=== PATIENT | female | born 1965 | race Caucasian/White ===

== ENCOUNTER 2020-11-11 16:02 | Outpatient (REF) | payer MEDICAID, SELFPAY | END 2020-11-11 16:03 | disposition home or self-care (01) | LOC: HO.LAB 16:02 | PROVIDERS: Visit Provider Internal Medicine | DX: Z20.828 Contact with and (suspected) exposure to other viral communicable diseases (principal) | CPT/HCPCS: C9803; U0003 ==

== ENCOUNTER 2022-02-12 12:15 | Emergency (ER) | payer MEDICAID, SELFPAY ==
[2022-02-12 12:19] VITALS: BP 136/78; PULSE 71; RESP 16; TEMP 36.4; O2SAT 94; BMI 21.4
--- NOTE | 2022-02-12 12:47 | ED.ANIMALBIT ---
HPI - Animal Bite General Chief Complaint: Animal Bite Stated Complaint: Animal Bit Time Seen by Provider: 02/12/22 12:47 Source: patient Mode of arrival: ambulatory Limitations: no limitations History of Present Illness HPI narrative: Patient is a 56 year old female presenting to the emergency department today with cat bites to her right hand. Patient states that her 2 indoor cats were fighting and one attacked her right hand. Patient states that her cats are up to date with rabies vaccinations. Patient states that she does not know when her last tetanus shot was. Patient denies any dizziness, lightheadedness, abdominal pain, nausea, vomiting, fever, chills, blurry vision, double vision, loss of vision, chest pain, difficulty breathing, shortness of breath, back pain, night sweats, pain with urination, increased urinary frequency, increased urinary urgency, blood in her urine or stool, syncope or a near syncopal episode, bowel incontinence, bladder incontinence, bowel retention, bladder retention, or any other complaints at this time. MD complaint: animal bite Onset (ago): minute(s) Animal: cat Description of animal: household pet Mechanism: bite Location: other (right hand) Pain description: dull Severity scale (1-10): 3 Context: animals fighting Associated symptoms: none Treatments prior to arrival: wound dressing(s) Related Data Patient tetanus UTD: No Previous Rx's Medication Instructions Recorded amoxicillin 875 mg-potassium 1 tab PO BID 7 Days #14 tab 02/12/22 clavulanate 125 mg tablet Allergies Allergy/AdvReac Type Severity Reaction Status Date / Time No Known Allergies Allergy Unverified 08/12/20 15:31 [No Known Allergies*] Review of Systems Constitutional: Constitutional: Reports no additional constitutional complaints, Denies chills, Denies fever(s) and Denies night sweats Eyes: Eyes: Reports no additional eye complaints, Denies blurry vision, Denies change in vision, Denies diplopia, Denies eye discharge, Denies loss of vision and Denies eye pain ENT: Denies dizziness Cardiovascular: Cardiovascular: Reports no additional cardiovascular complaints, Denies chest pain, Denies lightheadedness, Denies Loss of Consciousness and Denies dyspnea Respiratory: Respiratory: Reports no additional respiratory complaints and Denies dyspnea Gastrointestinal: Gastrointestinal: Reports no additional gastrointestinal complaints, Denies abdominal pain, Denies melena, Denies hematochezia, Denies change in bowel habits and Denies change in stool character Genitourinary: Genitourinary: Denies hematuria, Denies urinary frequency, Denies dysuria, Denies urinary incontinence, Denies urinary hesitancy and Denies urinary urgency Musculoskeletal: Musculoskeletal: Reports no additional musculoskeletal complaints, Denies numbness and Denies tingling Integumentary/Breasts: Comments: cat bites to the right hand Neurologic: Denies dizziness, Denies loss of vision, Denies numbness and Denies tingling Psychiatric: Psychiatric: Reports no additional psychiatric complaints Endocrine: Endocrine: Reports no additional endocrine complaints Hematologic/Lymphatic: Hematologic/Lymphatic: Reports no additional hematologic/lymphatic complaints Allergic/Immunologic: Allergic/Immunologic: Reports no additional allergic/immunologic complaints [facility] Past Medical History Attestation statement: The following information was validated with the patient. Source: old records reviewed Social History Social History Advance Directives: Yes Advance Directives Information Provided: No Advance Directives on File: No Physical Exam ED Vital Signs: Vital Signs - 24 hr 02/12/22 12:19 Temperature 97.6 F Pulse Rate 71 Respiratory Rate 16 Blood Pressure 136/78 Pulse Oximetry 94 BMI result Body Mass Index 21.4 Const General: cooperative, no acute distress, alert and awake Nutritional Appearance: well nourished Orientation/consciousness: patient oriented x3 Limitations: no limitations HENMT Head: Yes normal to inspection and Yes atraumatic Ears: hearing grossly normal bilaterally and external ears normal General nose exam: Normal external nose present, no nasal discharge noted and no epistaxis Face and sinus: Yes normal facial exam, No abrasion and No laceration Mouth: Normal oral and palatal mucosa present, no drooling and no muffled voice Eyes General: appearance normal, both eyes and all related structures Periorbital: periorbital findings normal Eyelids: Yes eyelids normal Conjunctivae: conjunctivae normal Pupils: Equal, round and reactive pupils present EOM: EOMs intact bilaterally Neck Neck: Yes normal visual inspection, Yes full ROM and Yes no lymphadenopathy Chest Chest palpation & inspection: normal inspection of the chest Resp Effort & Inspection: normal respiratory effort and able to speak in complete sentences Auscultation: clear to auscultation bilaterally Cardio Rate: regular rate Rhythm: regular rhythm GI Inspection: Yes normal to inspection Skin Other: small puncture wounds to the dorsal aspect of the right hand, no active bleeding or gaping areas Neuro General: patient oriented x3 and moves all extremities Cranial nerves: Yes Equal, round and reactive pupils present Cognition (Neuro): normal cognition Motor exam (neuro): 5/5 motor strength present throughout Sensory Exam: Normal double simultaneous stimulation for sensation Coordination: [id number] test normal Extrem General: Yes normal to inspection, Yes full ROM and Yes capillary refill normal Psych Appearance: grossly normal Mental Status: mental status grossly normal Affect: normal affect Attitude: cooperative Thought process: Normal thought process present Thought content: Normal thought content present Insight: Good insight present (Psych) MDM - Animal Bite MDM Narrative Medical decision making narrative: Patient is a 56 year old female presenting to the emergency department today with cat bites to her right hand. Patient's physical exam showed 3 cat bite puncture wounds with no active bleeding or gaping areas. I explained my physical exam findings to the patient. I answered all questions asked by the patient. Patient was brought up to date on their tetanus. I stressed the importance of the patient taking her medication as prescribed. I stressed the importance of the patient following up with her primary care provider. I stressed the importance of the patient returning to the emergency department immediately if her symptoms were to worsen or if she were to develop any dizziness, shortness of breath, difficulty breathing, chest pain, blurry vision, loss of vision, nausea, vomiting, abdominal pain, fever, chills, back pain, or any other complaints. Patient verbalized agreement and understanding with this treatment plan and discharge. Differential Diagnosis Differential diagnosis: Likely bite by animal and cat bite Medical Records Attestation: I reviewed the patient's medical records. Discharge Plan Discharge Clinical Impression: Bite by animal, Cat bite Patient Disposition: Home, Self-Care Instructions: Animal Bite (ED) Additional Instructions: Follow up with your primary care provider. Return to the emergency department immediately if your symptoms worsen or if you develop any dizziness, shortness of breath, difficulty breathing, chest pain, blurry vision, loss of vision, nausea, vomiting, abdominal pain, fever, chills, back pain, or any other complaints. Prescriptions: New amoxicillin-pot clavulanate 875-125 mg tablet 1 tab PO BID 7 Days Qty: 14 0RF Referrals: Feng Odell MD [Primary Care Provider] - 2 days Print Language: Welsh
[2022-02-12] MEDS: Diphth,Pertus(ACell),Tet Adult 0.5 ML SYRINGE IM (13:07)
== END 2022-02-12 13:14 | disposition home or self-care (01) ==
LOC: HO.ED 12:58
PROVIDERS: Emergency Provider Emergency Medicine Emergency Medical Services; PCP Internal Medicine
DX: S60.571A Other superficial bite of hand of right hand, initial encounter (principal); W55.01XA Bitten by cat, initial encounter; Y93.9 Activity, unspecified; Y92.9 Unspecified place or not applicable; Y99.9 Unspecified external cause status
CPT/HCPCS: 90471; 90715; 99283; 99284

== ENCOUNTER 2023-11-07 07:30 | Inpatient (IN) | payer MEDICAID, SELFPAY ==
[2023-11-07] VITALS (13 sets, daily range): BP systolic 119–150; BP diastolic 78–97; PULSE 16–130; RESP 16–40; TEMP 36.3–36.7; O2SAT 88–96; BMI 20.6; BMI 20.1
--- NOTE | 2023-11-07 | ECG_ITS ---
Test Reason : prolonged qt Blood Pressure : / mmHG Vent. Rate : 090 BPM Atrial Rate : 090 BPM P-R Int : 118 ms QRS Dur : 092 ms QT Int : 380 ms P-R-T Axes : 075 050 -41 degrees QTc Int : 464 ms Normal sinus rhythm Nonspecific T wave abnormality Abnormal ECG When compared with ECG of 07-NOV-2023 08:12, Nonspecific T wave abnormality has replaced inverted T waves in Inferior leads Referred By: Swati Mayers Electronically Signed By:Ed Casas
--- NOTE | ~2023-11-07 | XR_ITS ---
EXAMINATION: XR CHEST CLINICAL INFORMATION: Shortness of breath cough COMPARISON: Chest radiograph from 07/13/2018 TECHNIQUE: Frontal view of the chest was obtained. FINDINGS: Chronic appearing interstitial and reticular markings involving the bilateral lower lung samano though underlying infectious/inflammatory etiology not excluded. Trachea is midline. Cardiomediastinal silhouette is not enlarged. No large pleural effusion. Osseous structures are intact. Soft tissues are unremarkable. XR/XR chest 1V IMPRESSION: Chronic appearing interstitial and reticular markings involving the bilateral lower lung samano though underlying infectious/inflammatory etiology not excluded.
--- NOTE | 2023-11-07 07:48 | ECG_ITS ---
Test Reason : SOB Blood Pressure : / mmHG Vent. Rate : 112 BPM Atrial Rate : 112 BPM P-R Int : 112 ms QRS Dur : 084 ms QT Int : 470 ms P-R-T Axes : 074 051 048 degrees QTc Int : 641 ms Sinus tachycardia Nonspecific ST and T wave abnormality Prolonged QT Abnormal ECG When compared to the previous EKG of QT has lengthened Nonspecific ST-T changes Referred By: Generic ED Physician Electronically Signed By:Ed Casas
--- NOTE | 2023-11-07 08:29 | ED.SOB ---
HPI - SOB/Dyspnea General Chief Complaint: Upper Respiratory Symptoms Stated Complaint: SOB FOR DAYS PER EMS Time Seen by Provider: 11/07/23 07:53 Source: patient Mode of arrival: EMS History of Present Illness HPI Narrative: 58-year-old female with history of being an everyday smoker, COPD and presents with increasing shortness of breath for the past 5 days without associated fever chills, she denies any nausea or vomiting but has had increased cough. Related Data Previous Rx's Medication Instructions Recorded amoxicillin 875 mg-potassium 1 tab PO BID 7 days #14 tabs 02/12/22 clavulanate 125 mg tablet Allergies Allergy/AdvReac Type Severity Reaction Status Date / Time No Known Allergies Allergy Verified 11/07/23 08:16 [No Known Allergies*] Review of Systems Review of Systems: Pertinent positives and negatives as stated in HPI [facility] Past Medical History Source: nursing notes reviewed Social History Social History Smoked in Last 30 Days: Yes Use of substances other than those prescribed or required for medical reasons: No Advance Directives: No Advance Directives Information Provided: Yes Patient : No Physical Exam Vital Signs: Vital Signs: Last Vital Signs Temp 97.8 F 11/07/23 09:59 Pulse 121 H 11/07/23 10:03 Resp 22 H 11/07/23 10:03 BP 119/82 11/07/23 09:59 Pulse Ox 88 L 11/07/23 10:03 O2 Del Method Room Air 11/07/23 10:03 Oxygen Flow Rate 2 11/07/23 09:55 BMI result Body Mass Index 20.6 VITAL SIGNS: Reviewed. GENERAL: Well developed, well nourished, in no acute distress. HEAD: Normocephalic/atraumatic EYES: PERRLA, EOMI EARS: Ext canals without abnormality, TMs non-bulging and non-erythematous NOSE: Nares patent bilateral OROPHARYNX: no oral lesions noted, posterior pharynx clear and non-erythematous without noted tonsillar enlargement/erythema/exudates NECK: Supple, no adenopathy LUNGS: Productive cough, tachypnea, some expiratory wheeze noted. SpO2<95> on 2 L nasal cannula CARDIOVASCULAR: Regular rate and rhythm without noted murmurs ABDOMEN: Soft, non-tender, non-distended with bowel sounds. No rigidity. No guarding. No palpable masses or hernias noted MUSCULOSKELETAL: No tenderness, deformities, or effusions noted on gross inspection. EXTREMITIES: No cyanosis, clubbing or edema. SKIN: Inspection of the skin reveals no rashes NEUROLOGIC: Alert and oriented x 4. Strength and sensation to light touch were grossly intact x 4. Medications Administered Discontinued Medications Generic Name Dose Route Start Last Admin Trade Name Umerq PRN Reason Stop Dose Admin Acetaminophen 975 mg 11/07/23 08:30 11/07/23 09:48 Acetaminophen 325 Mg Tablet PO 11/07/23 08:31 Not Given ONCE ONE Albuterol Sulfate 5 mg/ 7.5 mg 11/07/23 09:11 11/07/23 09:17 Albuterol Sulfate 2.5 mg INHALE 11/07/23 09:12 7.5 mg ONCE ONE Administration Benzonatate 200 mg 11/07/23 08:06 11/07/23 09:47 Benzonatate 100 Mg Capsule PO 11/07/23 08:07 200 mg ONCE ONE Administration Ibuprofen 400 mg 11/07/23 08:30 11/07/23 09:48 Ibuprofen 400 Mg Tablet PO 11/07/23 08:31 Not Given ONCE ONE Methylprednisolone Sodium Succinate 125 mg 11/07/23 08:12 11/07/23 09:48 Methylprednisolone Sod Succ 125 Mg/2 Ml Vial IVPUSH 11/07/23 08:13 125 mg ONCE ONE Administration Medical Decision Making Medical Decision Making [facility] Narrative: 0815: 58-year-old female with history and clinical presentation, DDX: Chronic lung disease, pneumonia, viral illness: COVID/influenza/RSV. Tachycardia secondary to medication administration (albuterol/DuoNeb). 0904: The laboratory called to report lactic acid of 2.5 that is attributable to patient's nebulized treatments. I reviewed all investigations and hematologic indices do not demonstrated leukocytosis or left shift, there is an elevated hemoglobin level that suspect is related to patient's underlying COPD history, platelets are noted to be mildly lowered at 154. VBG does not demonstrate respiratory acidosis at this time and there is no hypercapnia noted likely secondary to significant tachypnea. Chemistry indices demonstrate mild metabolic acidosis and no evidence to suggest MARCIN or electrolyte derangement. Lactic acid elevated and addressed above, viral testing significant for influenza but patient is outside of window for initiation of Tamiflu. Chest x-ray demonstrates bronchial wall thickening and although this may be simply associated with viral infection and COPD will treat with a dose of antibiotics. Patient has received nebulized treatments as well as steroids. My interpretation is that patient has new oxygen requirements secondary to acute COPD exacerbation secondary to viral infection with suspected secondary bacterial infection. Due to QT/QTC prolongation patient will receive 2 g of magnesium sulfate. 1005: I discussed case with inpatient hospitalist who accepts admission. Differential Diagnosis Differential Diagnoses: The differential diagnosis associated with the presentation includes Please see the discussion above Admission/Observation Consideration of admission/observation: Escalation of care including admission/observation considered Please see the discussion above Consult Healthcare Provider Management of the patient was discussed with: Hospitalist Please see the discussion above Lab Data MDM Lab Attestation statement: I reviewed the patient's lab results. Please see the discussion above 11/07/23 08:32 11/07/23 08:32 Labs: Lab Results 11/07/23 11/07/23 11/07/23 Range/Units 08:32 08:33 08:35 WBC 6.6 (4.8-10.8) X10*3/uL RBC 5.96 H (4.20-5.50) X10*6/uL Hgb 18.0 H (12.0-16.0) g/dl Hct 52.6 H (37.0-47.0) % MCV 88.3 (80.0-98.0) fL MCH 30.2 (27.0-33.0) pg MCHC 34.2 (31.0-35.0) g/dl RDW 14.2 (11.0-16.0) % Plt Count 154 L (160-400) X10*3/uL MPV 11.9 (9.4-12.3) fL Immature Gran % (Auto) 0.5 H (0.0-0.4) % Neut % (Auto) 72.9 (45-73) % Lymph % (Auto) 17.6 L (20-40) % Hendricks % (Auto) 8.7 (2-11) % Eos % (Auto) 0.0 (0-4) % Baso % (Auto) 0.3 (0-2) % Lymph # (Auto) 1.2 (1.2-4.9) X10*3/uL Hendricks # (Auto) 0.6 (0.1-1.2) X10*3/uL Eos # (Auto) 0.0 (0.0-0.4) X10*3/uL Baso # (Auto) 0.0 (0.0-0.2) X10*3/uL Abs Immat Gran (auto) 0.03 (0.00-0.03) X10*3/uL Absolute Neuts (auto) 4.8 (2.0-8.3) x10*3/uL Absolute Nucleated RBC 0.000 (0.0-0.012) X10*3/uL Nucleated RBC % (auto) 0.0 (0.0-0.2) /100WBC VBG pH (7.32-7.43) VBG pCO2 mmHg VBG pO2 mmHg VBG HCO3 (22-26) mmol/L VBG O2 Saturation % VBG Base Excess mmol/L Sodium 137 (135-145) mmol/L Potassium 4.0 (3.3-5.1) mmol/L Chloride 104 (96-108) mmol/L Carbon Dioxide 19 L (22-29) mmol/L Anion Gap 18 (12-20) BUN 27 H (9-16) mg/dL Creatinine 1.06 (0.5-1.4) mg/dL Estim Creat Clear Calc 50.2 Estimated GFR 53 Random Glucose 150 H (60-115) mg/dL Lactic Acid 2.5 H* (0.5-2.0) mmol/L Calcium 9.8 (8.4-10.2) mg/dL Influenza Type A (PCR) POSITIVE A (Negative) Influenza Type B (PCR) NEGATIVE (Negative) RSV RNA Qual (PCR) NEGATIVE (Negative) SARS-CoV-2 RNA (RT-PCR) NEGATIVE (Negative) 11/07/23 Range/Units 09:02 WBC (4.8-10.8) X10*3/uL RBC (4.20-5.50) X10*6/uL Hgb (12.0-16.0) g/dl Hct (37.0-47.0) % MCV (80.0-98.0) fL MCH (27.0-33.0) pg MCHC (31.0-35.0) g/dl RDW (11.0-16.0) % Plt Count (160-400) X10*3/uL MPV (9.4-12.3) fL Immature Gran % (Auto) (0.0-0.4) % Neut % (Auto) (45-73) % Lymph % (Auto) (20-40) % Hendricks % (Auto) (2-11) % Eos % (Auto) (0-4) % Baso % (Auto) (0-2) % Lymph # (Auto) (1.2-4.9) X10*3/uL Hendricks # (Auto) (0.1-1.2) X10*3/uL Eos # (Auto) (0.0-0.4) X10*3/uL Baso # (Auto) (0.0-0.2) X10*3/uL Abs Immat Gran (auto) (0.00-0.03) X10*3/uL Absolute Neuts (auto) (2.0-8.3) x10*3/uL Absolute Nucleated RBC (0.0-0.012) X10*3/uL Nucleated RBC % (auto) (0.0-0.2) /100WBC VBG pH 7.35 (7.32-7.43) VBG pCO2 31 mmHg VBG pO2 77 mmHg VBG HCO3 17 L (22-26) mmol/L VBG O2 Saturation 94.0 % VBG Base Excess -6.3 mmol/L Sodium (135-145) mmol/L Potassium (3.3-5.1) mmol/L Chloride (96-108) mmol/L Carbon Dioxide (22-29) mmol/L Anion Gap (12-20) BUN (9-16) mg/dL Creatinine (0.5-1.4) mg/dL Estim Creat Clear Calc Estimated GFR Random Glucose (60-115) mg/dL Lactic Acid (0.5-2.0) mmol/L Calcium (8.4-10.2) mg/dL Influenza Type A (PCR) (Negative) Influenza Type B (PCR) (Negative) RSV RNA Qual (PCR) (Negative) SARS-CoV-2 RNA (RT-PCR) (Negative) Independent Interpretation I performed an independent interpretation of an: EKG Interpretation: Sinus tachycardia, HR-112, no STEMI, LA/QRS are within normal limits, QTC is noted to be 641. Radiology Impression Discussion of test interpretation with radiology: I have reviewed the radiologist's reading. Radiologist Impression: Please see the discussion above Chronic Conditions Patient?s care impacted by: Other COPD, current everyday smoker Critical Care Time Critical Care Time Critical Care Time: Yes Total Critical Care Time: 60 Attestation: I personally attest to this time spent taking care of the patient. Discharge Plan Discharge Clinical Impression: COPD exacerbation, Influenza A, Hypoxia, Pneumonia Patient Disposition: Admitted As Inpatient Prescriptions: No Action amoxicillin-pot clavulanate 875-125 mg tablet 1 tab PO BID 7 Days Qty: 14 0RF
[2023-11-07 08:41] LABS: MANUAL DIFF FLAG NO
[2023-11-07 08:51] LABS: Basophils Percent Auto 0.3 % (0-2); Hematocrit 52.6 % (37.0-47.0); Imm Gran Abs Auto 0.03 X10*3/uL (0.00-0.03); Imm Gran Pct Auto 0.5 % (0.0-0.4); Lymphocytes Absolute Auto 1.2 X10*3/uL (1.2-4.9); Lymphocytes Percent Auto 17.6 % (20-40); Mean Corpuscular HGB Conc 34.2 g/dl (31.0-35.0); Mean Corpuscular Hemoglobin 30.2 pg (27.0-33.0); Mean Corpuscular Volume 88.3 fL (80.0-98.0); Mean Platelet Volume 11.9 fL (9.4-12.3); Monocytes Absolute Auto 0.6 X10*3/uL (0.1-1.2); Monocytes Percent Auto 8.7 % (2-11); Neutrophils Absolute Auto 4.8 x10*3/uL (2.0-8.3); Neutrophils Percent Auto 72.9 % (45-73); Platelet Count 154 X10*3/uL (160-400); Red Blood Count 5.96 X10*6/uL (4.20-5.50); Red Cell Distribution Width 14.2 % (11.0-16.0); White Blood Count 6.6 X10*3/uL (4.8-10.8)
[2023-11-07 09:01] LABS: Anion Gap 18 (12-20); Blood Urea Nitrogen 27 mg/dL (9-16); Calcium 9.8 mg/dL (8.4-10.2); Carbon Dioxide 19 mmol/L (22-29); Chloride 104 mmol/L (96-108); Creatinine Clr Calc Pharmacy 50.2; Estimated Glomerular Filt Rate 53; Glucose Random 150 mg/dL (60-115); Sodium 137 mmol/L (135-145)
[2023-11-07] MEDS: Albuterol Sulfate 5 MG, Albuterol Sulfate (0.083%) 2.5 MG 7.5 MG INHALE (09:17)
[2023-11-07 09:19] LABS: VBG Base Excess -6.3 mmol/L; VBG HCO3 17 mmol/L (22-26); VBG pCO2 31 mmHg; VBG pH 7.35 (7.32-7.43); VBG pO2 77 mmHg
[2023-11-07 09:20] LABS: Venous Blood Gas Refer to POC result
[2023-11-07 09:24] LABS: Influenza A PCR POSITIVE (Negative); Influenza B PCR NEGATIVE (Negative); Resp Syncy Virus RNA Qual PCR NEGATIVE (Negative); SARS COV2 PCR INHOUSE NEGATIVE (Negative)
[2023-11-07] MEDS: Benzonatate 100 MG CAPSULE 200 MG PO (09:47)
[2023-11-07] MEDS: methylPREDNISolone Sod Succ 125 MG/2 ML VIAL IVPUSH (09:48)
[2023-11-07 10:40] LABS: Reflex Lactate? Lactic Acid Added
[2023-11-07 10:42] LABS: Alanine Aminotransferase 36 U/L (0-31); Albumin Level 4.3 g/dL (3.5-5.0); Alkaline Phosphatase 88 U/L (39-117); Aspartate Amino Transferase 40 U/L (5-31); Bilirubin Direct 0.2 mg/dL (0.0-0.5); Bilirubin Total 0.5 mg/dL (0.0-1.0); Total Protein 8.1 g/dL (6.5-8.0)
[2023-11-07] MEDS: Piperacillin Sodium/Tazobactam 3.375 GM in 0.9 % Sodium Chloride 50 ML IV (10:50)
[2023-11-07] MEDS: Magnesium Sulfate/H2O 2 GM/50 ML PIGGYBACK IV (11:17)
--- NOTE | 2023-11-07 11:22 | P.HPHOSP_ITS ---
History of Present Illness Date of Service: 11/07/23 Attending physician on admission: Brinda Kinney Chief Complaint: SOB Pt is a 58-year-old female with a PMH significant for?COPD not on home O2, asthma, Forte's esophagus, GERD, IBS, chronic back and neck pain on chronic opioids who presents to the ED with?worsening SOB and MACK the past few days. Pt states symptoms began 5-6 days ago when she developed cough, runny nose, increased fatigue, and felt congested. Denies fever, chills, nausea, vomiting. Patient's cough has been mostly nonproductive. States she feels like she has mucus in her lungs that she just cannot cough up. Rhinorrhea approved, but cough, congestion, and SOB worsened until patient awoke this morning and states she just ?could not breathe?. Patient states she has chronic dyspnea on exertion and will get out of breath if she walks 5-10 feet at baseline. States she was diagnosed with asthma, COPD, and emphysema at age 27. Reports being told at that time that she ?had the lungs of a 71-year-old . Patient is a lifelong smoker, currently still smoking 1 pack daily. Denies alcohol use. Reports smoking marijuana daily, but denies any illicit substances. Complains of right rib pain associated with coughing. No chest pain/pressure, palpitations. In the ED pt was afebrile but tachycardic to 128, tachypneic up to 40, satting at 88% on room air. Labs were significant for lactic acid 2.5, AST 40, and ALT 36. No leukocytosis. Stable H&H. Lytes WNL. Patient tested positive for influenza type A. CXR showed chronic appearing interstitial and reticular markings involving the bilateral lower lung samano, though underlying infectious/inflammatory process not excluded. EKG demonstrated sinus tachycardia with nonspecific ST and T-wave abnormalities with prolonged QTc of 641. Pt was treated with DuoNebs, benzonatate, Solu-Medrol acetaminophen, ibuprofen Zosyn, Mag sulfate, and IVF. Pt will be admitted to the hospital for treatment further evaluation of acute hypoxic respiratory failure in the setting of COPD exacerbation and pneumonia. Review of Systems 2 Review of Systems: Increasing shortness of breath, MACK Mostly nonproductive cough Increased fatigue Right-sided chest pain associated with cough Rhinorrhea, resolved [facility] Medical History (Updated 11/07/23 @ 12:56 by NESSA Cummins) IBS (irritable bowel syndrome) Chronic back pain Chronic neck pain GERD (gastroesophageal reflux disease) Barretts esophagus Social History Smoked in Last 30 Days: Yes Use of substances other than those prescribed or required for medical reasons: No Advance Directives: No Advance Directives Information Provided: Yes Patient : No Meds Allergies Allergy/AdvReac Type Severity Reaction Status Date / Time No Known Allergies Allergy Verified 11/07/23 08:16 [No Known Allergies*] Home Medications Medication Instructions Recorded Confirmed Last Taken Type acetaminophen 500 mg tablet 500 mg PO Q8H PRN pain 11/07/23 11/07/23 Unknown History albuterol sulfate 90 mcg/actuation 2 puff inhalation Q6H PRN wheezing 11/07/23 11/07/23 Unknown History aerosol inhaler cholecalciferol (vitamin D3) 25 25 mcg PO DAILY 11/07/23 11/07/23 Unknown History mcg (1,000 unit) tablet clonazepam 1 mg tablet 1 mg PO BID PRN Anxiety 11/07/23 11/07/23 Unknown History fluticasone 250 mcg-salmeterol 50 1 ea inhalation BID 11/07/23 11/07/23 Unknown History mcg/dose blistr powdr for inhalation (Advair Diskus) ibuprofen 800 mg tablet 800 mg PO TID PRN Pain 11/07/23 11/07/23 Unknown History lidocaine 5 % topical patch 1 patch topical DAILY 11/07/23 11/07/23 Unknown History loratadine 10 mg tablet 10 mg PO DAILY 11/07/23 11/07/23 Unknown History morphine 30 mg tablet,extended 30 mg PO BID 11/07/23 11/07/23 Unknown History release omeprazole 20 mg capsule,delayed 20 mg PO BID 11/07/23 11/07/23 Unknown History release oxycodone 5 mg tablet 5 mg PO Q8H PRN Pain 11/07/23 11/07/23 Unknown History sertraline 50 mg tablet 50 mg PO DAILY 11/07/23 11/07/23 Unknown History sucralfate 1 gram tablet 1 g PO DAILY PRN Constipation 11/07/23 11/07/23 Unknown History trazodone 50 mg tablet 50 mg PO BEDTIME 11/07/23 11/07/23 Unknown History Physical Exam 2 Vital Signs and Narrative: Vital Signs: Last Vital Signs Temp 97.8 F 11/07/23 09:59 Pulse 121 H 11/07/23 10:03 Resp 22 H 11/07/23 10:03 BP 119/82 11/07/23 09:59 Pulse Ox 88 L 11/07/23 10:03 O2 Del Method Room Air 11/07/23 10:03 Oxygen Flow Rate 2 11/07/23 09:55 BMI result Body Mass Index 20.6 General: AOx3, no acute distress Resp: Mild expiratory rhonchi, especially in lower lung samano bilaterally CVS: S1, S2, tachy GI: +BS, NT, no distention Skin: Warm, dry Neuro: Cranial nerves II-XII grossly intact bilaterally. Motor grossly intact bilaterally Extremities: No edema Psych: Appropriate affect Results Labs 11/07/23 08:32 11/07/23 08:32 Labs: Laboratory Results - last 24 hr 11/07/23 11/07/23 11/07/23 08:32 08:33 08:35 MCV 88.3 MCH 30.2 MCHC 34.2 RDW 14.2 Plt Count 154 L MPV 11.9 Immature Gran % (Auto) 0.5 H Neut % (Auto) 72.9 Lymph % (Auto) 17.6 L [place] % (Auto) 8.7 Eos % (Auto) 0.0 Baso % (Auto) 0.3 Lymph # (Auto) 1.2 [place] # (Auto) 0.6 Eos # (Auto) 0.0 Baso # (Auto) 0.0 Abs Immat Gran (auto) 0.03 Absolute Neuts (auto) 4.8 Absolute Nucleated RBC 0.000 Nucleated RBC % (auto) 0.0 VBG pH VBG pCO2 VBG pO2 VBG HCO3 VBG O2 Saturation VBG Base Excess Anion Gap 18 Estim Creat Clear Calc 50.2 Estimated GFR 53 Random Glucose 150 H Lactic Acid 2.5 H* Calcium 9.8 Magnesium 2.0 Total Bilirubin 0.5 Direct Bilirubin 0.2 AST 40 H ALT 36 H Alkaline Phosphatase 88 Total Protein 8.1 H Albumin 4.3 Influenza Type A (PCR) POSITIVE A Influenza Type B (PCR) NEGATIVE RSV RNA Qual (PCR) NEGATIVE SARS-CoV-2 RNA (RT-PCR) NEGATIVE 11/07/23 09:02 MCV MCH MCHC RDW Plt Count MPV Immature Gran % (Auto) Neut % (Auto) Lymph % (Auto) [place] % (Auto) Eos % (Auto) Baso % (Auto) Lymph # (Auto) [place] # (Auto) Eos # (Auto) Baso # (Auto) Abs Immat Gran (auto) Absolute Neuts (auto) Absolute Nucleated RBC Nucleated RBC % (auto) VBG pH 7.35 VBG pCO2 31 VBG pO2 77 VBG HCO3 17 L VBG O2 Saturation 94.0 VBG Base Excess -6.3 Anion Gap Estim Creat Clear Calc Estimated GFR Random Glucose Lactic Acid Calcium Magnesium Total Bilirubin Direct Bilirubin AST ALT Alkaline Phosphatase Total Protein Albumin Influenza Type A (PCR) Influenza Type B (PCR) RSV RNA Qual (PCR) SARS-CoV-2 RNA (RT-PCR) Imaging Radiologist's Impressions: Impressions Chest X-Ray 11/07/23 09:16 IMPRESSION: Chronic appearing interstitial and reticular markings involving the bilateral lower lung samano though underlying infectious/inflammatory etiology not excluded. Assessment and Plan (1) Pneumonia: Status: Acute (2) Hypoxia: Status: Acute (3) COPD exacerbation: Status: Acute Plan Pt is a 58-year-old female with a PMH significant for?COPD not on home O2, asthma, Forte's esophagus, GERD, IBS, chronic back and neck pain on chronic opioids who presents to the ED with?worsening SOB and MACK the past few days. Pt will be admitted to the hospital for treatment further evaluation of acute hypoxic respiratory failure in the setting of COPD exacerbation and pneumonia. Acute hypoxic respiratory failure with sepsis in the setting of COPD exacerbation and pneumonia Likely precipitated by influenza A infection 5-6 days prior Pt satting at 88% on RA, not on home O2 Pt meets sepsis criteria: likely pneumonia, tachycardia, tachypnea, lactic acid 2.5 Pt r received IVF and started on broad-spectrum antibiotics in ED Will treat with ceftriaxone, started 11/07/2023; will hold on azithromycin d/t prolonged QTc Duonebs, Solu-medrol Continue home inhalers Titrate supplemental O2 >92, wean as tolerated Influenza A Pt tested positive in ED No indication for Tamiflu given symptom onset likely 5-6 days ago Lactic acid Initial lactic acid 2.5, repeat 3.3 Pt given IVF in ED Trend labs Prolonged QT Initial EKG with QTc 641 Avoid QT prolonging agents Will repeat EKG Chronic SOB/MACK Consider seeing if pt qualifies for home O2 IBS Continue sucralfate GERD/Forte's esophagus Continue PPI Tobacco dependence NRT: Patch Nicotine cessation counseled Full Code Attending:?Dr. Kinney DVT Prophylaxis: Lovenox Pt will require a hospitalization of at least two nights for treatment of acute hypoxic respiratory failure in the setting of pneumonia and COPD exacerbation. Patient require supplemental O2, IV antibiotics, IV steroids, and breathing treatments. Quality Stroke Does the patient have a stroke diagnosis?: No VTE Prior VTE?: No VTE Risk Level:: Medical - moderate - high VTE Device Contraindication: Treatment Not Indicated VTE Drug Contraindication: N/A - Med Ordered
[2023-11-07 11:35] LABS: ~Lactic Acid-LAB USE ONLY 3.3 mmol/L (0.5-2.0)
--- NOTE | 2023-11-07 11:40 | PC.NURSE ---
PT SEEN BY HOSP [facility] (DHARA). PT/FAMILY AWARE OF PLAN OF CARE FOR ADMISSION TO HOSP.
[2023-11-07] MEDS: 0.9 % Sodium Chloride 1,000 ML 999 ML IV (12:01)
[2023-11-07 12:20] LABS: Lactic Acid 2.5 mmol/L (0.5-2.0)
[2023-11-07] MEDS: guaiFENesin DM 200/20/10 ML 10 ML SYRUP PO (12:54)
[2023-11-07] MEDS: Nicotine 21 MG PATCH.TD24 TRANSDERMA (12:55)
[2023-11-07] MEDS: Enoxaparin Sodium 40 MG/0.4 ML SYRINGE SUBCUT (12:55)
--- NOTE | 2023-11-07 12:58 | PHA.MEDREC ---
Pharmacy Consult ? Medication Reconciliation Pharmacy has completed the medication reconciliation. Patient knew all medications
[2023-11-07 13:03] LABS: Reflex Lactate? 2 Y
[2023-11-07 14:08] LABS: ~Lactic Acid-LAB USE ONLY 2.6 mmol/L (0.5-2.0)
[2023-11-07] MEDS: clonazePAM 1 MG TABLET PO (14:38)
[2023-11-07] MEDS: 0.9 % Sodium Chloride 1,000 ML 125 ML IVCONT (14:39)
[2023-11-07] MEDS: Albuterol/Iprat 2.5/0.5MG 3 ML AMPUL.NEB INHALE ×2 (15:35→19:41)
[2023-11-07] MEDS: Omeprazole 20 MG CAPSULE.DR PO (16:16)
[2023-11-07] MEDS: Sertraline HCL 50 MG TABLET PO (16:16)
[2023-11-07] MEDS: cefTRIAXone sodium 1 GM in 0.9 % Sodium Chloride 50 ML IV (16:17)
--- NOTE | 2023-11-07 17:49 | PC.NURSE ---
Pt. with repeat Lactic acid 2.6, Provider notified. Provider to d/c further lactic checks and to order NS 1 liter@ 125ml/hr.
[2023-11-07] MEDS: Ibuprofen 400 MG TABLET PO (18:07)
[2023-11-07] MEDS: oxyCODONE HCl Immed Release 5 MG TABLET PO (19:21)
[2023-11-07] MEDS: Acetaminophen 325 MG TABLET 650 MG PO (19:21)
[2023-11-07] MEDS: traZODone HCL 50 MG TABLET PO (19:22)
[2023-11-07] MEDS: methylPREDNISolone Sod Succ 40 MG/ML VIAL IVPUSH (20:18)
[2023-11-07] MEDS: Morphine Sulfate ER 30 MG TABLET.ER PO (20:18)
[2023-11-07] MEDS: 0.9 % Sodium Chloride Flush 3 ML SYRINGE IVFLUSH (22:45)
[2023-11-08 03:59] VITALS: BP 136/68; PULSE 87; RESP 18; TEMP 36.3; O2SAT 92
[2023-11-08] MEDS: Omeprazole 20 MG CAPSULE.DR PO (05:09)
[2023-11-08 05:32] LABS: Hemoglobin 13.8 g/dl (12.0-16.0); Mean Corpuscular Hemoglobin 29.9 pg (27.0-33.0); PLT CLUMP 1
[2023-11-08 05:34] LABS: Hematocrit 41.3 % (37.0-47.0); Mean Corpuscular HGB Conc 33.4 g/dl (31.0-35.0); Mean Corpuscular Volume 89.4 fL (80.0-98.0); Red Blood Count 4.62 X10*6/uL (4.20-5.50); Red Cell Distribution Width 14.1 % (11.0-16.0); White Blood Count 10.3 X10*3/uL (4.8-10.8)
[2023-11-08 05:35] LABS: Platelet Count 126 X10*3/uL (160-400)
[2023-11-08 06:02] LABS: Anion Gap 11 (12-20); Blood Urea Nitrogen 23 mg/dL (9-16); Calcium 8.8 mg/dL (8.4-10.2); Carbon Dioxide 24 mmol/L (22-29); Chloride 108 mmol/L (96-108); Creatinine Clr Calc Pharmacy 77.4; Estimated Glomerular Filt Rate > 60; Glucose Random 124 mg/dL (60-115); Potassium 4.2 mmol/L (3.3-5.1); Sodium 139 mmol/L (135-145)
[2023-11-08] MEDS: Morphine Sulfate ER 30 MG TABLET.ER PO (06:14)
[2023-11-08] MEDS: clonazePAM 1 MG TABLET PO (06:15)
[2023-11-08 07:19] VITALS: BP 123/75; PULSE 82; RESP 20; TEMP 36.4; O2SAT 94
[2023-11-08] MEDS: Albuterol/Iprat 2.5/0.5MG 3 ML AMPUL.NEB INHALE (07:47)
[2023-11-08 07:48] VITALS: PULSE 82; RESP 20; O2SAT 90
[2023-11-08] MEDS: Nicotine 21 MG PATCH.TD24 TRANSDERMA (08:21)
[2023-11-08] MEDS: Cholecalciferol (Vitamin D3) 25 MCG TABLET PO (08:21)
[2023-11-08] MEDS: methylPREDNISolone Sod Succ 40 MG/ML VIAL IVPUSH (08:22)
[2023-11-08] MEDS: 0.9 % Sodium Chloride Flush 3 ML SYRINGE IVFLUSH (08:22)
[2023-11-08] MEDS: Sertraline HCL 50 MG TABLET PO (08:22)
[2023-11-08] MEDS: Loratadine 10 MG TABLET PO (08:22)
--- NOTE | 2023-11-08 09:44 | MHC.CM.PN ---
CM MET WITH PT AT BEDSIDE. PT IS INDEPENDENT AT BASELINE. NO PRIOR SERVICES. NO HCP BUT WILLING TO COMPLETE ONE. PCP DR. DAMARIS SHEPPARD. DP: HOME, NO SERVICES ANTICIPATED. PT HAS OWN RIDE HOME. CM WILL CONTINUE TO FOLLOW FOR ANY CHANGE IN DC NEEDS/PLAN.
[2023-11-08 10:07] VITALS: BP 140/74; PULSE 96; RESP 22; TEMP 36.7; O2SAT 94
[2023-11-08 10:44] VITALS: PULSE 101; PULSE 115; PULSE 118; PULSE 88; O2SAT 84; O2SAT 86; O2SAT 90; O2SAT 94
--- NOTE | 2023-11-08 12:03 | MHC.CM.PN ---
DP: PT HAS BEEN MEDICALLY CLEARED FOR DC HOME, NO SERVICES. PT HAS OWN RIDE HOME
--- NOTE | 2023-11-08 12:05 | P.DS_ITS ---
DS: Providers Provider Date of Service: 11/08/23 Date of admission: 11/07/23 12:36 Primary care physician: Feng Odlel MD DS: Diagnosis Discharge Diagnosis (1) Pneumonia: Status: Acute (2) Hypoxia: Status: Acute (3) COPD exacerbation: Status: Acute DS: Summary Hospital Course Hospital Course: history of presenting illness. Date of Service: 11/07/23 Attending physician on admission: Brinda Kinney Chief Complaint: SOB Pt is a 58-year-old female with a PMH significant for?COPD not on home O2, asthma, Forte's esophagus, GERD, IBS, chronic back and neck pain on chronic opioids who presents to the ED with?worsening SOB and MACK the past few days. Pt states symptoms began 5-6 days ago when she developed cough, runny nose, increased fatigue, and felt congested. Denies fever, chills, nausea, vomiting. Patient's cough has been mostly nonproductive. States she feels like she has mucus in her lungs that she just cannot cough up. Rhinorrhea approved, but cough, congestion, and SOB worsened until patient awoke this morning and states she just ?could not breathe?. Patient states she has chronic dyspnea on exertion and will get out of breath if she walks 5-10 feet at baseline. States she was diagnosed with asthma, COPD, and emphysema at age 27. Reports being told at that time that she ?had the lungs of a 71-year-old . Patient is a lifelong smoker, currently still smoking 1 pack daily. Denies alcohol use. Reports smoking marijuana daily, but denies any illicit substances. Complains of right rib pain associated with coughing. No chest pain/pressure, palpitations. In the ED pt was afebrile but tachycardic to 128, tachypneic up to 40, satting at 88% on room air. Labs were significant for lactic acid 2.5, AST 40, and ALT 36. No leukocytosis. Stable H&H. Lytes WNL. Patient tested positive for influenza type A. CXR showed chronic appearing interstitial and reticular markings involving the bilateral lower lung samano, though underlying inf ectious/inflammatory process not excluded. EKG demonstrated sinus tachycardia with nonspecific ST and T-wave abnormalities with prolonged QTc of 641. Pt was treated with DuoNebs, benzonatate, Solu-Medrol acetaminophen, ibuprofen Zosyn, Mag sulfate, and IVF. Pt will be admitted to the hospital for treatment further evaluation of acute hypoxic respiratory failure in the setting of COPD exacerbation and pneumonia. Hospital course: 58-year-old female with a PMH significant for?COPD not on home O2, asthma, Forte's esophagus, GERD, IBS, chronic back and neck pain on chronic opioids who presents to the ED with?worsening SOB and MACK the past few days. Pt will be admitted to the hospital for treatment further evaluation of acute hypoxic respiratory failure in the setting of COPD exacerbation and pneumonia. Acute hypoxic respiratory failure with sepsis in the setting of COPD exacerbation, influenza A and pneumonia, patient admitted to medical floor treated with IV antibiotics, DuoNeb updraft and IV Solu Medrol patient responded rapidly to above treatment feeling significantly better this morning home O2 eval obtained she qualifies for 2 L of oxygen with activity, since patient is clinically stable she is being discharged home on total 5 days of prednisone and by mouth Ceftin , she has been placed on DuoNeb updraft 4 times a day for next 4-5 days and then as needed, she will have an updraft machine delivered by [email or web address], all features of sepsis have resolved. she has been strongly advised to abstain from smoking, nicotine patch 21 mg has been dispensed ,counseling done. EKG showed prolonged QT, no prior EKGs available for comparison, will avoid medications that cause prolonged QT. IBS Continue sucralfate GERD/Forte's esophagus Continue PPI chronic pain continue home medications Time Attestation Discharge coordination time: Greater than 30 minutes Quality: Safe Use of Opioids Does Pt have an Active Cancer Diagnosis on the Problem List?: No Quality: Stroke Does the patient have a stroke diagnosis?: No Physical Exam Vital Signs: Vital Signs: Last Vital Signs Temp 98.1 F 11/08/23 10:07 Pulse 96 11/08/23 10:07 Resp 22 H 11/08/23 10:07 BP 140/74 H 11/08/23 10:07 Pulse Ox 94 11/08/23 10:07 O2 Del Method Nasal Cannula 11/08/23 10:07 O2 Flow Rate 2 11/08/23 10:07 FiO2 92 11/07/23 13:46 Oxygen Flow Rate 2 11/07/23 09:55 BMI result Body Mass Index 20.1 Const: Other: General: AOx3, no acute distress Neck no jvd Resp: clear to auscultation, no crackles, no wheeze or rhonchi CVS: S1, S2, tachy GI: +BS, NT, no distention Skin: Warm, dry Neuro: Cranial nerves II-XII grossly intact bilaterally. Motor grossly intact bilaterally Extremities: No edema Psych: Appropriate affect DS: Data Data Completed and Pending Labs on day of discharge: Laboratory Results - last 24 hr 11/07/23 11/07/23 11/08/23 08:33 13:32 05:00 WBC 10.3 RBC 4.62 D Hgb 13.8 D Hct 41.3 D MCV 89.4 MCH 29.9 MCHC 33.4 RDW 14.1 Plt Count 126 L MPV 11.0 Absolute Nucleated RBC 0.000 Nucleated RBC % (auto) 0.0 Sodium 139 Potassium 4.2 Chloride 108 Carbon Dioxide 24 Anion Gap 11 L BUN 23 H Creatinine 0.67 Estim Creat Clear Calc 77.4 Estimated GFR > 60 Random Glucose 124 H Lactic Acid 2.5 H* Lactic Acid F/U @ 4Hr 2.6 H* Calcium 8.8 D Preliminary micro results at discharge 11/07/23 08:59 Blood Culture - Preliminary Blood - Venous No growth after 24 hours. 11/07/23 08:32 Blood Culture - Preliminary Blood - Venous No growth after 24 hours. Discharge Plan Discharge Anticipated Discharge Date/Time: 11/08/23 11:53 Patient Disposition: Home, Self-Care Discharge Diagnosis: acute hypoxic respiratory failure with COPD exacerbation sepsis due to pneumonia influenza a Referrals: Feng Odell MD [Primary Care Provider] - 1 Week Discharge Medications: New nicotine 21 mg/24 hr Patch 24 Hour 21 mg transdermal DAILY Qty: 28 0RF ipratropium-albuterol 0.5 mg-3 mg(2.5 mg base)/3 mL Solution For Nebulization 3 ml inhalation QID Qty: 180 0RF Rx Instructions: use DuoNeb inhaler of 4 times a day for 1 week and then use as needed prednisone 20 mg tablet 20 mg PO DAILY Qty: 4 0RF cefuroxime axetil 500 mg tablet 500 mg PO Q12H Qty: 8 0RF Continued fluticasone propion-salmeterol [Advair Diskus] 250-50 mcg/dose blister with device 1 ea inhalation BID trazodone 50 mg tablet 50 mg PO BEDTIME sucralfate 1 gram tablet 1 g PO DAILY PRN (Reason: Constipation) clonazepam 1 mg tablet 1 mg PO BID PRN (Reason: Anxiety) morphine 30 mg tablet extended release 30 mg PO BID acetaminophen 500 mg tablet 500 mg PO Q8H PRN (Reason: pain) lidocaine 5 % adhesive patch,medicated 1 patch topical DAILY omeprazole 20 mg capsule,delayed release(DR/EC) 20 mg PO BID albuterol sulfate 90 mcg/actuation HFA aerosol inhaler 2 puff inhalation Q6H PRN (Reason: wheezing) sertraline 50 mg tablet 50 mg PO DAILY loratadine 10 mg tablet 10 mg PO DAILY cholecalciferol (vitamin D3) 25 mcg (1,000 unit) tablet 25 mcg PO DAILY oxycodone 5 mg tablet 5 mg PO Q8H PRN (Reason: Pain) Discontinued ibuprofen 800 mg tablet 800 mg PO TID PRN (Reason: Pain) Discharge Orders: Discharge Order (Routine); Ordered 11/08/23 Ordered By: Brinda Kinney Diet: Advance to usual diet Activity on Discharge: As tolerated Stand Alone Forms: Patient Portal Discharge page Care Plan Goals: take prednisone 20 mg daily for 3 days while on prednisone avoid using Motrin take Ceftin 500 mg twice daily as directed you qualify for 2 L of home oxygen with activity use DuoNeb updraft treatment 4 times a days for 4-5 days and then use as needed q4h in regard to influenza A cover face with sneezing and coughing rest, plenty of fluids Health Concerns: tobacco use disorder strongly recommend to abstain from smoking use nicotine patch 21 mg daily Plan of Treatment: outpatient follow-up with primary care physician and referral to pulmonology Assessment: as above
--- NOTE | 2023-11-08 12:31 | PC.RT ---
Pt set up with home o2, nebulizer through [employer]. E cylinder brought to pt, operation explained and demonstrated. Pt able to return demonstration. Pt reminde x 3 to call [employer] upon arrival at home to prevent any gaps in srevice. RN present.
== END 2023-11-08 12:57 | disposition home or self-care (01) | DRG 720 ==
LOC: HO.ED 10:13 → HO.EDOVER 12:37 → HO.S3 13:02
PROVIDERS: Admitting Provider Student in an Organized Health Care Education/Training Program; Emergency Provider Student in an Organized Health Care Education/Training Program; PCP Internal Medicine; Visit Provider Hospitalist
DX: A41.9 Sepsis, unspecified organism (principal); J96.01 Acute respiratory failure with hypoxia; J10.00 Influenza due to other identified influenza virus with unspecified type of pneumonia; E87.20 Acidosis, unspecified; J44.0 Chronic obstructive pulmonary disease with (acute) lower respiratory infection; F17.210 Nicotine dependence, cigarettes, uncomplicated; J44.1 Chronic obstructive pulmonary disease with (acute) exacerbation; K58.9 Irritable bowel syndrome, unspecified; K21.9 Gastro-esophageal reflux disease without esophagitis; K22.70 Barrett's esophagus without dysplasia; R94.31 Abnormal electrocardiogram [ECG] [EKG]; G89.29 Other chronic pain; M54.2 Cervicalgia; M54.9 Dorsalgia, unspecified; Z71.6 Tobacco abuse counseling; Z79.51 Long term (current) use of inhaled steroids; Z79.899 Other long term (current) drug therapy
CPT/HCPCS: 0241U; 36415; 71045; 80048; 80076; 82803; 83605; 83735; 85025; 85027; 87040; 93005; 94640; 99285; J0696; J1650; J2543; J2920; J2930; J3475

== ENCOUNTER → 2023-11-07 07:48 | Outpatient (BNV) | payer MEDICAID, SELFPAY | PROVIDERS: Admitting Provider Student in an Organized Health Care Education/Training Program; Emergency Provider Student in an Organized Health Care Education/Training Program; PCP Internal Medicine; Visit Provider Internal Medicine Cardiovascular Disease | DX: R00.0 Tachycardia, unspecified (principal); R94.31 Abnormal electrocardiogram [ECG] [EKG] | CPT/HCPCS: 93010 ==

== ENCOUNTER → 2023-11-07 12:36 | Outpatient (BNV) | payer MEDICAID, SELFPAY | PROVIDERS: Admitting Provider Student in an Organized Health Care Education/Training Program; Emergency Provider Student in an Organized Health Care Education/Training Program; PCP Internal Medicine; Visit Provider Student in an Organized Health Care Education/Training Program | DX: J96.01 Acute respiratory failure with hypoxia (principal); J44.1 Chronic obstructive pulmonary disease with (acute) exacerbation; J10.00 Influenza due to other identified influenza virus with unspecified type of pneumonia | CPT/HCPCS: 99223; 99239 ==